=== PATIENT | female | born 1960 | race Caucasian/White ===

== ENCOUNTER 2019-04-13 21:52 | Emergency (ER) | payer OTHER ==
[~2019-04-13] VITALS: Ht 165.1 cm; Wt 79.9 kg
[2019-04-13 21:59] VITALS: BP 132/63
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
[2019-04-13 23:19] LABS: MICROSCOPIC NOT IND
[2019-04-13 23:23] LABS: CULTURE INDICATED? NO
--- NOTE | 2019-04-13 23:43 | NUR ---
Patient/Caregiver given discharge instructions and they have confirmed that they understand the instructions. Patient ambulatory with steady gait.
== END 2019-04-14 00:11 | disposition home or self-care (01) ==
LOC: ED 23:50
DX: S39.011A Strain of muscle, fascia and tendon of abdomen, initial encounter (principal); K43.9 Ventral hernia without obstruction or gangrene; R11.10 Vomiting, unspecified; R19.7 Diarrhea, unspecified; X58.XXXA Exposure to other specified factors, initial encounter; Y93.89 Activity, other specified; Y92.89 Other specified places as the place of occurrence of the external cause; Y99.8 Other external cause status
CPT/HCPCS: 81003; 99283